=== PATIENT | female | born 1970 | race Asian ===

== ENCOUNTER 2022-07-26 06:10 | Day surgery (SDC) | payer BC ==
[~2022-07-26] VITALS: Ht 157.5 cm; Wt 65.3 kg
[~2022-07-26 06:10] MED LIST: LEVO500T2 PO; NORE1TAB39 PO
[2022-07-26] MEDS ORDERED: normal saline 1000ml 1,000 ML IV PRN (06:40)
[2022-07-26] MEDS ORDERED: ATOR20TA66 PO (06:50)
[2022-07-26] MEDS ORDERED: HYDR25TA4 PO (06:50)
[2022-07-26] MEDS ORDERED: AMLO5TAB16 PO (06:50)
[2022-07-26] MEDS ORDERED: BISO10TA16 (06:50)
[2022-07-26] MEDS ORDERED: SODI650T29 PO (06:50)
[2022-07-26] MEDS ORDERED: FEBU40TA3 PO (06:50)
[2022-07-26] MEDS ORDERED: ALLO100T PO (06:50)
[2022-07-26] MEDS ORDERED: AMLO10TA13 PO (06:50)
[2022-07-26 07:09] VITALS: BP 143/88
[2022-07-26] MEDS ORDERED: midazolam 1 mg/ML 2ml injection ONE (08:16)
[2022-07-26] MEDS ORDERED: heparin 1,000unit/ml 10ml vial 10 ML ONE (08:16)
[2022-07-26] MEDS ORDERED: fentaNYL/PF 50MCG/1 ML 2ML syringe ONE (08:17)
[2022-07-26] MEDS ORDERED: LIDOcaine 1% 30ml preserv. free vial ONE (08:17)
[2022-07-26 09:54] VITALS: BP 159/90
[2022-07-26 10:09] VITALS: BP 142/79
[2022-07-26 10:24] VITALS: BP 152/83
[2022-07-26 10:39] VITALS: BP 142/84
[2022-07-26 10:54] VITALS: BP 136/78
== END 2022-07-26 11:00 | disposition home or self-care (01) ==
LOC: SSTAY O 06:10
PROVIDERS: ATTEND Radiology Diagnostic Radiology
DX: E11.22 Type 2 diabetes mellitus with diabetic chronic kidney disease (principal); I12.0 Hypertensive chronic kidney disease with stage 5 chronic kidney disease or end stage renal disease; N18.6 End stage renal disease; E78.5 Hyperlipidemia, unspecified; D63.1 Anemia in chronic kidney disease; N25.81 Secondary hyperparathyroidism of renal origin; E66.8 Other obesity; Z68.26 Body mass index [BMI] 26.0-26.9, adult; E87.20 Acidosis, unspecified; E83.39 Other disorders of phosphorus metabolism; E79.0 Hyperuricemia without signs of inflammatory arthritis and tophaceous disease; E55.9 Vitamin D deficiency, unspecified; Z90.710 Acquired absence of both cervix and uterus; Z98.890 Other specified postprocedural states; Z79.899 Other long term (current) drug therapy; Z87.442 Personal history of urinary calculi
CPT/HCPCS: 36558; 76937; 77001; 99152; 99153; C1750; C1769; C1894; J1644; J2250; J3010; J3490; J7030; A4620; A9270